=== PATIENT | female | born 1980 | race Caucasian/White ===

== ENCOUNTER → 2017-12-25 | Outpatient (CLI) | payer OTHER ==
[~2017-12-25] MED LIST: HYDR1TAB75 PO; IBP800T PO; PREN1TAB39 PO
--- NOTE | 2017-12-25 14:14 | Diagnostic Imaging Report ---
Indication: Palpable fullness in the upper left breast. This is performed for further evaluation. No prior mammograms are available for comparison. This is a baseline study. Bilateral 2-D and 3-D diagnostic mammography was performed CAD. There are scattered fibroglandular densities bilaterally. A BB marker is placed at the area of palpable fullness. This corresponds to approximately 12 to 1 o'clock location 7-8 cm from the nipple. There is an area of increased density, particularly on the MLO view which is concerning. Ultrasound of this area is recommended. No suspicious calcifications are seen. The right breast is unremarkable. The axillae are unremarkable. IMPRESSION: BI-RADS zero There is an area of increased density in the upper left breast at the area of palpable fullness. Further evaluation with ultrasound is recommended. ACR BI-RADS Category 0: Incomplete. (Needs additional imaging evaluation). Result letter will be mailed to the patient. Note: At least 10% of breast cancer is not imaged by mammography. Dictated by: Dictated on workstation # [id number]
--- NOTE | 2017-12-25 14:17 | Diagnostic Imaging Report ---
INDICATION: Palpable lump in the left breast. COMPARISON: Correlation is made with the diagnostic mammogram from earlier this same day. FINDINGS: Sonographic interrogation of the area of lump at the 12 o'clock location was performed. No sonographic abnormality is seen. No solid or cystic mass is detected. IMPRESSION: No sonographic abnormality is seen. Even so, a followup left mammogram in 6 months is recommended to show continued stability. ACR BI-RADS Category 3: Probably benign findings. Dictated by: Dictated on workstation # [id number]
== END ==
LOC: RAD 13:17
PROVIDERS: ATTEND Nurse Practitioner Primary Care
DX: N63.20 Unspecified lump in the left breast, unspecified quadrant (principal)
CPT/HCPCS: 76642; 77066

== ENCOUNTER → 2018-07-04 | Outpatient (CLI) | payer OTHER ==
--- NOTE | 2018-07-04 19:56 | Diagnostic Imaging Report ---
INDICATION: Six-month followup of left breast density. Correlation is made with prior mammogram from 12/25/2017. 2-D and 3-D unilateral left diagnostic mammography was performed with a Computer Aided Detection (CAD) system. FINDINGS: Scattered fibroglandular densities in left breast again noted. Area of asymmetric density in the upper left breast on MLO view persists but appears to be less prominent on today's exam. No discrete underlying mass is identified. No suspicious calcifications are seen. The left axilla is unremarkable. IMPRESSION: Stable left mammogram. Density in the superior left breast is similar to improved when compared with prior mammogram. Even so, followup left mammogram in 6 months is recommended to show continued stability. ACR BI-RADS Category 3: Probably benign findings. Result letter will be mailed to the patient. Note: At least 10% of breast cancer is not imaged by mammography. Dictated by: Dictated on workstation # [id number]
== END ==
LOC: RAD 13:41
PROVIDERS: ATTEND Nurse Practitioner Primary Care
DX: N64.89 Other specified disorders of breast (principal); R92.2 Inconclusive mammogram

== ENCOUNTER → 2019-02-18 | Outpatient (CLI) | payer OTHER ==
--- NOTE | 2019-02-19 09:19 | Diagnostic Imaging Report ---
EXAMINATION: Digital mammogram bilateral diagnostic INDICATION: Follow-up mammograms This study was compared to the prior exam of 07/04/2018 and 12/25/2017. 3D tomographic images obtained and reviewed. At this time there are no current complaints. The baseline screening mammogram performed on 12/25/2017 noted area of increased density in the area of the patient's palpable abnormality in the superior aspect of the left breast. The subsequent diagnostic mammogram and ultrasound exam performed on the same day failed to show any sign of malignancy. Follow-up ultrasound exam of 07/04/2018 was also unremarkable for malignancy. On this study the area of increased density in the upper aspect of the left breast seems stable. Most likely this is due to fibroglandular tissue alone. Even so, a six-month follow-up exam would be recommended for continued evaluation. The fibroglandular tissue in both breasts is heterogeneously dense. This does limit the sensitivity of this exam. Overall, there has been no significant change. There is no primary or secondary sign of malignancy noted. IMPRESSION: 1. There is no evidence for malignancy. 2. A 6 month follow-up mammogram left breast would be recommended for continued evaluation. ACR category 3 ACR BI-RADS Category 3: Probably benign findings. Result letter will be mailed to the patient. Note: At least 10% of breast cancer is not imaged by mammography. Dictated by: Dictated on workstation # [id number]
== END ==
LOC: RAD 13:27
PROVIDERS: ATTEND Nurse Practitioner Primary Care
DX: N64.89 Other specified disorders of breast (principal); R92.8 Other abnormal and inconclusive findings on diagnostic imaging of breast
CPT/HCPCS: 77066

== ENCOUNTER → 2019-09-18 | Outpatient (CLI) | payer OTHER ==
--- NOTE | 2019-09-18 13:35 | Diagnostic Imaging Report ---
INDICATION: Six-month follow-up left breast density. Correlation made with prior mammograms dating back to December 2017. Unilateral left 2-D and 3-D diagnostic mammography was performed with CAD. Left breast remains heterogeneously dense. The density in the superior left breast is stable. No discrete mass or malignant appearing microcalcifications are seen. Left axilla is unremarkable. IMPRESSION: BI-RADS 3 Stable left mammogram and left breast density. This now shows 18 months of stability. One final six-month follow-up is recommended to confirm stability. ACR BI-RADS Category 3: Probably benign findings. Result letter will be mailed to the patient. Note: At least 10% of breast cancer is not imaged by mammography. Dictated by: Dictated on workstation # [id number]
== END ==
LOC: RAD 12:44
PROVIDERS: ATTEND Nurse Practitioner Primary Care
DX: N64.89 Other specified disorders of breast (principal)

== ENCOUNTER → 2020-04-23 | Outpatient (CLI) | payer OTHER ==
--- NOTE | 2020-04-23 13:30 | Diagnostic Imaging Report ---
Bilateral diagnostic mammogram The study was compared to the prior exams of 09/18/2019, 02/18/2019, 07/04/2018 and 12/25/2017. At this time there are no current complaints. The fibroglandular tissue in both breasts is heterogeneously dense. This does limit the sensitivity of this exam. The previous exams dating back to 2018 have noted an asymmetry in the superior aspect of the left breast. That finding is again evident and does not appear to have changed significantly. Consequently do suspect this is related to fibroglandular tissue alone. The overall appearance of the left breast is otherwise stable as well. On the craniocaudad view of the right breast in the mid lateral aspect of the breast approximately 7 cm from the nipple there is a 16 mm asymmetry. This is not as conspicuous on the compression roll views and cannot be identified with certainty on either the MLO or true lateral view. Consequently I suspect this is secondary to fibroglandular tissue. Even so, I would recommend that ultrasound be performed for further study. Impression: 1. There is no evidence of malignancy involving the left breast. 2. Ultrasound of the right breast is pending for further evaluation. ACR BI-RADS Category 0: Incomplete. (Needs additional imaging evaluation). Result letter will be mailed to the patient. Note: At least 10% of breast cancer is not imaged by mammography. Dictated by: Dictated on workstation # [id number]
--- NOTE | 2020-04-23 15:21 | Diagnostic Imaging Report ---
EXAM: Ultrasound right breast, limited. INDICATION: Abnormal mammogram The diagnostic mammogram of the right breast performed earlier today noted a small asymmetry in the upper outer aspect of the breast. On this exam, there is no discrete solid or cystic mass evident. I suspect that the asymmetric density seen on the mammogram was secondary to fibroglandular tissue alone. IMPRESSION: 1. There is no evidence of malignancy. 2. The patient should have her annual bilateral screening mammogram on on schedule in April of 2021 ACR BI-RADS Category 1: Negative. Result letter will be mailed to the patient. Note: At least 10% of breast cancer is not imaged by mammography. Dictated by: Dictated on workstation # [id number]
== END ==
LOC: RAD 12:45
PROVIDERS: ATTEND Family Medicine
DX: N64.89 Other specified disorders of breast (principal); R92.8 Other abnormal and inconclusive findings on diagnostic imaging of breast
CPT/HCPCS: 76642; 77066; G0279; 77062

== ENCOUNTER → 2022-03-14 | Outpatient (CLI) | payer BC ==
--- NOTE | 2022-03-14 12:14 | Diagnostic Imaging Report ---
Indication: Routine screening. Comparison is made with prior mammogram 04/23/2020 and 02/18/2019. 2-D and 3-D bilateral screening mammography was performed with CAD. CAD is utilized. The current study was also evaluated with a Computer Aided Detection (CAD) system. Scattered fibroglandular densities are identified bilaterally. The parenchymal pattern is stable. No mass or malignant-appearing microcalcifications are seen. Axillae are unremarkable. IMPRESSION: BI-RADS Category 1 No mammographic features suspicious for malignancy are identified. ACR BI-RADS Category 1: Negative. Result letter will be mailed to the patient. Note: At least 10% of breast cancer is not imaged by mammography. Dictated by: Dictated on workstation # [id number]
== END ==
LOC: RAD 07:45
PROVIDERS: ATTEND Nurse Practitioner Family
DX: Z12.31 Encounter for screening mammogram for malignant neoplasm of breast (principal)
CPT/HCPCS: 77063; 77067